=== PATIENT | female | born 1965 | race American Indian/Alaskan Native ===

== ENCOUNTER 2017-09-03 13:22 | Emergency (ER) | payer BC ==
[2017-09-03] MEDS ORDERED: NACL 0.9% 1000 ML 1,000 ML IV ONE (16:34)
--- NOTE | 2017-09-03 16:34 | Emergency Department Report ---
Blank Doc - Documentation Documentation: Patient is a 51-year-old female presenting with weakness and lightheadedness for approximately 1 month. Patient has been seen at several other physicians offices including [facility] emergency Department her primary care physician as well as neurologist and oracle programmer. Patient states that the only time she feels fine and is when she is drinking Pedialyte. Otherwise patient states that she feels lightheadedness especially when she is having bowel movements. Patient states admitted to being slightly constipated. Patient denies any nausea vomiting fevers chills cough at this time. Patient is convinced that s is very ill and severely dehydrated. Patient's physical exam grossly was normal with normal heart tones lung sounds and soft nondistended abdomen. Patient is talking in full sentences. Patient will be moved to a treatment area to receive 1 L of normal saline as well as checking her electrolytes to rule out hyponatremia and will also check a CBC to make sure the patient is not severely anemic. He
[2017-09-03 17:11] LABS: Basophils % (Auto) 0.6 % (0.0-1.8); Eosinophils % (Auto) 0.4 % (0.0-4.3); Hematocrit 43.6 % (30.3-42.9); Hemoglobin 14.3 gm/dl (10.1-14.3); Lymphocytes # (Auto) 1.4 K/mm3 (1.2-5.4); Lymphocytes % (Auto) 20.4 % (13.4-35.0); Mean Corpuscular HGB Conc 33 % (30-34); Mean Corpuscular Hemoglobin 32 pg (28-32); Mean Corpuscular Volume 97 fl (79-97); Monocytes # (Auto) 0.5 K/mm3 (0.0-0.8); Monocytes % (Auto) 7.2 % (0.0-7.3); Platelet Count 240 K/mm3 (140-440); Red Blood Count 4.48 M/mm3 (3.65-5.03); Red Cell Distribution Width 13.6 % (13.2-15.2)
[2017-09-03 17:26] LABS: BUN/Creatinine Ratio 7; Blood Urea Nitrogen 4 mg/dL (7-17); Calcium 9.3 mg/dL (8.4-10.2); Hemolysis Index 30
[2017-09-03 19:37] LABS: Bilirubin,Urine NEG (Negative); Blood,Urine NEG (Negative); Color,Urine Yellow (Yellow); Mucus,Urine FEW /HPF; Protein,Urine <15 mg/dL mg/dL (Negative); Urobilinogen,Urine < 2.0 mg/dL (<2.0)
[2017-09-03 19:41] LABS: HCG Qualitative,Urine Negative (Negative)
--- NOTE | 2017-09-03 20:27 | Emergency Department Report ---
ED ENT HPI - General Chief complaint: Weakness Stated complaint: PASS OUT FEELING Time Seen by Provider: 09/03/17 15:59 Source: patient Mode of arrival: Ambulatory Limitations: No Limitations - History of Present Illness MD complaint: other - Related Data Allergies Allergy/AdvReac Type Severity Reaction Status Date / Time No Known Allergies Allergy Unverified 09/03/17 13:41 ED Dental HPI - General Chief complaint: Weakness Stated complaint: PASS OUT FEELING Time Seen by Provider: 09/03/17 15:59 Source: patient Mode of arrival: Ambulatory Limitations: No Limitations - Related Data Allergies Allergy/AdvReac Type Severity Reaction Status Date / Time No Known Allergies Allergy Unverified 09/03/17 13:41 ED Review of Systems ROS: Stated complaint: PASS OUT FEELING Other details as noted in HPI ED Past Medical Hx - Past Medical History Previous Medical History?: No - Surgical History Past Surgical History?: No - Social History Smoking Status: Never Smoker Substance Use Type: None ED Physical Exam - General Limitations: No Limitations ED Course Vital Signs 09/03/17 13:37 Temperature 98.3 F Pulse Rate 104 H Respiratory 16 Rate Blood Pressure 140/92 O2 Sat by Pulse 99 Oximetry ED Medical Decision Making - Lab Data Result diagrams: 09/03/17 17:03 09/03/17 17:03 Critical care attestation.: If time is entered above; I have spent that time in minutes in the direct care of this critically ill patient, excluding procedure time. ED Disposition Condition: Stable Referrals: PRIMARY CARE [Primary Care Provider] - 3-5 Days
--- NOTE | 2017-09-03 20:44 | Emergency Department Report ---
- General Chief complaint: Weakness Stated complaint: PASS OUT FEELING Time Seen by Provider: 09/03/17 15:59 Source: patient Mode of arrival: Ambulatory Limitations: No Limitations - History of Present Illness Initial comments: 51-year-old female past medical history none presents with complaint of one month of intermittent sensation of dehydration and generalized weakness. Denies any fever or chills nausea vomiting chest pain palpitation shortness of breath. States she occasionally has flushed sensation which makes her feel slightly lightheaded which lasts for a few seconds at a time and is been happening intermittently on a daily basis or every other day for one month. Patient states she has seen a primary physician about this issue and also a GI and was referred to a neurologist for an MRI. Patient was screened and evaluated by Dr. Cardenas. Patient states that hydration makes her feel slightly better. As any polydipsia polyuria or polyphagia. States she has not had a menstrual period in 6 months. States she is not currently . Patient adamantly denies any chest pain palpitations pleuritic chest pain shortness of breath or dyspnea with exertion. Patient denies any alcohol or drug use. at bedside. Denies any blurry vision or tinnitus at this time. MD Complaint: lack of energy Onset/Timin -: month(s) Consistency: intermittent Improves with: none Worsens with: none - Related Data Previous Rx's Medication Instructions Recorded Last Taken Type Docusate Sodium [Colace CAP] 100 mg PO BID PRN #20 capsule 09/03/17 Unknown Rx Allergies Allergy/AdvReac Type Severity Reaction Status Date / Time No Known Allergies Allergy Unverified 09/03/17 13:41 ED Review of Systems ROS: Stated complaint: PASS OUT FEELING Other details as noted in HPI Constitutional: denies: chills, fever Eyes: denies: eye pain, eye discharge, vision change ENT: denies: ear pain, throat pain Respiratory: denies: cough, shortness of breath, wheezing Cardiovascular: denies: chest pain, palpitations Endocrine: no symptoms reported Gastrointestinal: denies: abdominal pain, nausea, diarrhea Genitourinary: denies: urgency, dysuria, discharge Musculoskeletal: denies: back pain, joint swelling, arthralgia Skin: denies: rash, lesions Neurological: weakness. denies: headache, paresthesias Psychiatric: denies: anxiety, depression Hematological/Lymphatic: denies: easy bleeding, easy bruising ED Past Medical Hx - Past Medical History Previous Medical History?: No - Surgical History Past Surgical History?: No - Social History Smoking Status: Never Smoker Substance Use Type: None - Medications Home Medications: Home Medications Medication Instructions Recorded Confirmed Last Taken Type Docusate Sodium [Colace CAP] 100 mg PO BID PRN #20 capsule 09/03/17 Unknown Rx ED Physical Exam - General Limitations: No Limitations General appearance: alert, in no apparent distress - Head Head exam: Present: atraumatic, normocephalic - Eye Eye exam: Present: normal appearance, PERRL, EOMI - ENT ENT exam: Present: mucous membranes moist - Neck Neck exam: Present: normal inspection - Respiratory Respiratory exam: Present: normal lung sounds bilaterally. Absent: respiratory distress - Cardiovascular Cardiovascular Exam: Present: regular rate, normal rhythm. Absent: systolic murmur, diastolic murmur, rubs, gallop - GI/Abdominal GI/Abdominal exam: Present: soft, normal bowel sounds - Extremities Exam Extremities exam: Present: normal inspection - Back Exam Back exam: Present: normal inspection - Neurological Exam Neurological exam: Present: alert, oriented X3 - Psychiatric Psychiatric exam: Present: normal affect, normal mood - Skin Skin exam: Present: warm, dry, intact, normal color. Absent: rash - Assessment Assessment Interval: Baseline - Level of Consciousness 1a. Level of Consciousness: alert - LOC Questions 1b. LOC Questions: answers correctly - LOC Command 1c. LOC Commands: performs tasks correctly - Best Gaze 2. Best Gaze: normal - Visual 3. Visual: no visual loss - Facial Palsy 4. Facial Palsy: normal symmetrical movement - Motor Arm 5b. Motor Arm Right: no drift 5a. Motor Arm Left: no drift - Motor Leg 6a. Motor Leg Left: no drift 6b. Motor Leg Right: no drift - Limb Ataxia 7. Limb Ataxia: absent - Sensory 8. Sensory: normal - Best Language 9. Best Language: no aphasia - Dysarthria 10. Dysarthria: normal - Extinction and Inattention 11. Extinction/Inattention: no abnormality - Scoring Total Score: 0 Stroke Severity: No Stroke Symptoms ED Course Vital Signs 09/03/17 13:37 Temperature 98.3 F Pulse Rate 104 H Respiratory 16 Rate Blood Pressure 140/92 O2 Sat by Pulse 99 Oximetry ED Medical Decision Making - Lab Data Result diagrams: 09/03/17 17:03 09/03/17 17:03 - Medical Decision Making A/P: Worried well exam, concern for dehydration, possible constipation 1- patient evaluated by Dr. Cardenas. I followed up CBC BMP and urinalysis requested by attending 2- CBC BMP and urinalysis unremarkable. 3- States she has follow-up with her primary physician and has a scheduled MRI brain in less than one week. I advised her to follow-up with this 4- vital signs stable before discharge, patient tolerating by mouth fluid and food without difficulty. Cranial nerves 2, 3, 4, 5, 6, 7, 8,10, 11, 12 intact on clinical exam, patient is fully lucid awake alert and oriented 3 conversant. Patient given precautions, instructed to return to the ED for any confusion, lethargy, chest pain, shortness of breath, abdominal pain, inability to tolerate by mouth, paresthesias, inability to ambulate. at bedside for this conversation 5-patient states she has had some trouble defecating and has been straining. Makes some feces but states it is slightly hard stool we'll give her stools softener when necessary patient denies any abdominal pain nausea vomiting melena or hematochezia/bloody vomitus at this time Critical care attestation.: If time is entered above; I have spent that time in minutes in the direct care of this critically ill patient, excluding procedure time. ED Disposition Clinical Impression: Physically well but worried Constipation Qualifiers: Constipation type: unspecified constipation type Qualified Code(s): K59.00 - Constipation, unspecified Disposition: - TO HOME OR SELFCARE Is pt being admited?: No Does the pt Need Aspirin: No Condition: Stable Instructions: Constipation (ED), High Fiber Diet (ED) Prescriptions: Docusate Sodium [Colace CAP] 100 mg PO BID PRN #20 capsule PRN Reason: Pain Referrals: ALEKSANDR VÁSQUZE MD [Staff Physician] - 3-5 Days CASS BANDA MD [Staff Physician] - 3-5 Days Forms: Accompanied Note, Work/School Release Form(ED) Time of Disposition: 20:51
[2017-09-03 20:58] VITALS: BP 124/78
== END 2017-09-03 21:05 | disposition home or self-care (01) ==
LOC: ED 13:22
DX: R45.82 Worries (principal); K59.00 Constipation, unspecified; R53.1 Weakness
CPT/HCPCS: 36415; 80048; 81001; 81025; 85025; 87086; 93005; 93010; 96360; 99283; J7030